=== PATIENT | female | born 1960 | race Caucasian/White ===

== ENCOUNTER → 2017-02-01 | Outpatient (CLI) | payer MEDICARE, OTHER ==
--- NOTE | 2017-02-01 09:17 | MR ---
EXAMINATION TYPE: MR lumbar spine wo con DATE OF EXAM: 02/01/2017 COMPARISON: Previous lumbar MRI June 2013 HISTORY: Radiculopathy, lumbar region TECHNIQUE: Multiplanar, multisequence images of the lumbar spine were acquired. L1-L2: Stable, unremarkable L2-L3: Similar findings. There is some mild facet arthropathy. Minimal posterior broad-based disc bul ge causes only slight anterior mass effect on the thecal sac L3-L4: Broad-based posterior disc bulge causes minimal anterior mass effect on the thecal sac. Facet arthropathy with hypertrophy of the ligamentum flavum is mild and encroaches somewhat on the lateral recesses L4-L5: Posterior broad-based disc bulge causes mild anterior mass effect on the thecal sac somewhat e ccentric towards the left. Hypertrophic change of the ligamentum flavum is mild. L5-S1: Stable, unremarkable Lumbar segments are intact. No paraspinal masses are identified. Conus medullaris has a normal appe arance. Lumbar vertebral bodies show preserved height and alignment. There is mild multilevel spondyl osis, endplate discogenic marrow signal change, loss of disc height and signal at intervertebral leve ls compatible with disc desiccation and degenerative disc disease as on prior exam. There is no signi ficant spinal stenosis or foraminal encroachment. No sizable disc herniation. The conus is at T12-L1 and is unremarkable IMPRESSION: Essentially stable mild degenerative disc disease and facet arthropathy.
== END | disposition home or self-care (01) ==
LOC: RADMRIMAIN 08:15
PROVIDERS: ATTEND Physical Medicine & Rehabilitation
DX: M51.16 Intervertebral disc disorders with radiculopathy, lumbar region (principal); M46.06 Spinal enthesopathy, lumbar region
CPT/HCPCS: 72148

== ENCOUNTER → 2017-04-28 | Outpatient (CLI) | payer MEDICARE, OTHER ==
--- NOTE | 2017-04-29 09:44 | MM ---
Reason for exam: screening (asymptomatic). Last mammogram was performed 1 year and 1 month ago. History: Family history of breast cancer in maternal aunt. Reductions of both breasts, September 1988. Physical Findings: A clinical breast exam by your physician is recommended on an annual basis and results should be correlated with mammographic findings. MG 3D Screening Mammo W/Cad Bilateral CC and MLO view(s) were taken. Prior study comparison: April 09, 2016, bilateral MG 3d screening mammo w/cad. February 14, 2015, mammogram, performed at [facility]. There are scattered fibroglandular densities. There is no discrete abnormality. No significant changes when compared with prior studies. ASSESSMENT: Negative, BI-RAD 1 RECOMMENDATION: Routine screening mammogram of both breasts in 1 year.
== END | disposition home or self-care (01) ==
LOC: RADMAMWWP 12:27
PROVIDERS: ATTEND Family Medicine
DX: Z12.31 Encounter for screening mammogram for malignant neoplasm of breast (principal)
CPT/HCPCS: 77063; G0202

== ENCOUNTER → 2018-01-01 | Outpatient (CLI) | payer MEDICARE, OTHER ==
--- NOTE | 2018-01-02 07:18 | BD ---
EXAMINATION TYPE: MG DEXA axial skeleton. DATE OF EXAM: 01/01/2018 COMPARISON: NONE CLINICAL HISTORY: Height: 5 FT 2 3/4 IN Weight: 147 FRAX RISK QUESTIONS: Alcohol (3 or more units per day): NO Family History (Parent hip fracture): NO Glucocorticoids (More than 3mos): NO (Ex: prednisone, prednisolone, methylprednisolone, dexamethasone, and hydrocortisone). History of Fracture in Adulthood: YES Secondary Osteoporosis: 1. Type 1 Diabetes: NO 2. Hyperthyroidism: NO 3. Menopause before 45: YES 4. Malnutrition: NO 5. Chronic liver disease: NO Rheumatoid Arthritis: NO Current Tobacco Use: NO RISK FACTORS HISTORY OF: Family History of Osteoporosis: YES Active: YES Postmenopausal woman: PART HYST AGE 42 MEDICATIONS: Additional Medications: HYDROCODONE, MORPHINE SULFATE, DOXEPIN,BUSPROPIN, METRONIDAZOLE, Additional History: EXAM MEASUREMENTS: Bone mineral densitometry was performed using the [employer]. Bone mineral density as measured about the Lumbar spine is: ----- L1-L4(G/cm2): 0.999 T Score Values are as follows: ----- L2: -1.5 ----- L3: -1.3 ----- L4: -1.7 ----- L1-L4: -1.5 BASELINE Bone mineral density about the R hip (g/cm2): 0.763 Bone mineral density about the L hip (g/cm2): 0.757 T Score values are as follows: -----R Neck: -2.0 -----L Neck: -2.0 -----R Total: -2.0 -----L Total: -2.0 BASELINE IMPRESSION: Osteopenia (T Score between -2.5 and -1) overall in the low back and both hips. There is slightly increased risk of fracture and the patient may be considered for treatment. Re-Screen 2-5 years. NOTE: T-SCORE=SD OF THE YOUNG ADULT MEAN.
== END | disposition home or self-care (01) ==
LOC: RADBDWWP 16:17
PROVIDERS: ATTEND Family Medicine
DX: M85.851 Other specified disorders of bone density and structure, right thigh (principal); M85.852 Other specified disorders of bone density and structure, left thigh; M85.88 Other specified disorders of bone density and structure, other site
CPT/HCPCS: 77080

== ENCOUNTER 2018-01-20 12:03 | Day surgery (SDC) | payer MEDICARE, OTHER ==
[2018-01-16 08:23] VITALS: BMI 26.0
[~2018-01-20 12:03] MED LIST: LACTATED RINGERS 1,000 ML IV SCH; LIDOCAINE 1% 20 ML VIAL (10MG/ML) FOR IV START INTRADERMA PRN
[2018-01-20 12:49] VITALS: RESP 16; TEMP 97.8
[2018-01-20] MEDS ORDERED: PROPOFOL 10 MG/ML 20 ML VIAL IV ONE (13:29)
[2018-01-20] MEDS ORDERED: LIDOCAINE 1% INJ 10MG/ML (20 ML MDV) ONE (13:29)
[2018-01-20 14:24] VITALS: BP 148/82; PULSE 88
--- NOTE | 2018-01-20 15:18 | P.PCN ---
Date of Procedure: 01/20/18 Procedure(s) Performed: Procedure: Esophagogastroduodenoscopy and biopsy. Preoperative diagnosis: Dysphagia. Postoperative diagnosis: 1. Small sliding hiatal hernia with no obvious esophagitis or complicated reflux disease. 2. Mild gastritis and minimal duodenitis with no ulcers or gastric outlet obstruction. 3. Multiple biopsies obtained from the duodenum, antrum and esophagus. Preparation sedation: Was provided by anesthesia. Brief clinical history: The patient is a 57-year-old female who is scheduled for this evaluation because of dysphagia and a need to constant clearing her throat that has been going on for the last year or so. She was tried on PPI back in June for 1 month with no benefit. She has no alarm symptoms. This evaluation is to assess for esophagitis or complicated Reflux disease. Procedure: With the patient on her left lateral decubitus position and after informed consent and adequate sedation, I passed the Olympus-GIF 160 video upper endoscope through the cricopharyngeus down the esophagus. GE junction was around 35 cm from the incisors and there was a small sliding hiatal hernia but no obvious esophagitis or complicated reflux disease. The endoscope was then passed into the stomach which was insufflated with air and inspected in detail including the retroflex view in the cardia. There was some mottling and erythema in the antrum consistent with mild gastritis but no ulcers or erosions. Pyloric channel did not show any ulcers. Duodenal bulb showed minimal mottling and erythema but no ulcers or erosions or bleeding. Post bulbar area and descending duodenum appeared within normal limits. I obtained multiple biopsies from the duodenum, antrum and esophagus then the endoscope was withdrawn. The patient tolerated the procedure well. Plan: The patient was reassured. Will await biopsy results. Further plans will be made based on her course and biopsy results.
== END 2018-01-20 14:35 | disposition home or self-care (01) ==
LOC: ORWHC2ENDO 12:03
DX: K44.9 Diaphragmatic hernia without obstruction or gangrene (principal); K29.50 Unspecified chronic gastritis without bleeding; K20.0 Eosinophilic esophagitis; K29.80 Duodenitis without bleeding; E07.9 Disorder of thyroid, unspecified; M79.7 Fibromyalgia; Z79.891 Long term (current) use of opiate analgesic; Z79.899 Other long term (current) drug therapy
CPT/HCPCS: 88305; 43239; J2001; J2704

== ENCOUNTER → 2018-04-30 | Outpatient (CLI) | payer MEDICARE, OTHER ==
--- NOTE | 2018-05-04 09:59 | MM ---
Reason for exam: screening (asymptomatic). Last mammogram was performed 1 year ago. History: Patient is postmenopausal. Family history of breast cancer in maternal aunt at age 55. Reductions of both breasts, September 1988. Physical Findings: A clinical breast exam by your physician is recommended on an annual basis and results should be correlated with mammographic findings. MG 3D Screening Mammo W/Cad Bilateral CC and MLO view(s) were taken. Prior study comparison: April 28, 2017, bilateral MG 3d screening mammo w/cad. April 09, 2016, bilateral MG 3d screening mammo w/cad. There are scattered fibroglandular densities. Stable benign calcifications. There is no discrete abnormality. No significant changes when compared with prior studies. ASSESSMENT: Benign, BI-RAD 2 RECOMMENDATION: Routine screening mammogram of both breasts in 1 year.
== END | disposition home or self-care (01) ==
LOC: RADMAMWWP 15:35
PROVIDERS: ATTEND Family Medicine
DX: Z12.31 Encounter for screening mammogram for malignant neoplasm of breast (principal)
CPT/HCPCS: 77063; 77067

== ENCOUNTER → 2019-05-15 | Outpatient (CLI) | payer MEDICARE, OTHER ==
--- NOTE | 2019-05-17 10:42 | MM ---
Reason for exam: screening (asymptomatic). Last mammogram was performed 1 year ago. History: Patient is postmenopausal. Family history of breast cancer in maternal aunt at age 55. Reductions of both breasts, September 1988. Physical Findings: A clinical breast exam by your physician is recommended on an annual basis and results should be correlated with mammographic findings. MG 3D Screening Mammo W/Cad Bilateral CC and MLO view(s) were taken. Prior study comparison: April 30, 2018, bilateral MG 3d screening mammo w/cad. April 28, 2017, bilateral MG 3d screening mammo w/cad. There are scattered fibroglandular densities. Stable benign calcifications. There is no discrete abnormality. No significant changes when compared with prior studies. ASSESSMENT: Benign, BI-RAD 2 RECOMMENDATION: Routine screening mammogram of both breasts in 1 year.
== END | disposition home or self-care (01) ==
LOC: RADMAMWWP 11:16
PROVIDERS: ATTEND Family Medicine
DX: Z12.31 Encounter for screening mammogram for malignant neoplasm of breast (principal)
CPT/HCPCS: 77063; 77067

== ENCOUNTER → 2019-10-15 | Outpatient (CLI) | payer MEDICARE, OTHER ==
--- NOTE | 2019-10-15 15:10 | MR ---
EXAMINATION TYPE: MR cervical spine wo con DATE OF EXAM: 10/15/2019 COMPARISON: 06/10/2013 HISTORY: Neck pain into left arm and fingers TECHNIQUE: Multiplanar, multisequence images of the cervical spine were acquired. C2-C3: Degenerative disc disease and disc desiccation. No canal stenosis or disc herniation. Neural f oramina patent. C3-C4: Degenerative disc disease and mild hypertrophic change of the facets. No foraminal encroachmen t, disc herniation or canal stenosis. C4-C5: Severe degenerative disc disease with broad-based central disc herniation abutting the anterio r margin the spinal cord. Could not exclude mild mass effect. Hypertrophic change of the uncovertebra l joints and facets result in mild bilateral foraminal encroachment. C5-C6: Severe degenerative disc disease with broad-based disc protrusion or herniation greater parace ntrally to left abutting the anterior margin of the spinal cord. Results in canal stenosis. Neural fo ramina remain patent. C6-C7: Severe degenerative disc disease with uncovertebral joint hypertrophy greater on the left. The re is very mild left-sided foraminal encroachment. No disc herniation or canal stenosis. C7-T1: There is left lateral disc bulging or protrusion left-sided moderate to severe foraminal encro achment. No Canal stenosis. Right neural foramina patent. Cervical segments are intact. There is normal alignment. Cervical spinal cord is of normal signal. Craniovertebral junction relationships are within normal limits. Subcentimeter thyroid nodules note d. IMPRESSION: 1. There is a left lateral disc protrusion at C7-T1 results in significant left-sided foraminal encro achment. Correlate for radiculopathy at this level. Far lateral disc herniation in the differential d iagnosis 2. Disc herniations with severe degenerative disc disease C4-5 and C5-C6 results in canal stenosis an d abuts the anterior margin of the spinal cord at both levels. Foraminal encroachment as discussed ab ove. 3. Multilevel significant degenerative disc disease. 4. Subcentimeter bilateral thyroid nodules
== END | disposition home or self-care (01) ==
LOC: RADMRIMAIN 12:59
DX: M48.02 Spinal stenosis, cervical region (principal); M50.121 Cervical disc disorder at C4-C5 level with radiculopathy
CPT/HCPCS: 72141

== ENCOUNTER → 2020-05-19 | Outpatient (CLI) | payer MEDICARE, OTHER ==
--- NOTE | 2020-05-22 10:01 | MM ---
Reason for exam: screening (asymptomatic). Last mammogram was performed 1 year ago. History: Patient is postmenopausal. Family history of breast cancer in maternal aunt at age 55. Reductions of both breasts, September 1988. Physical Findings: A clinical breast exam by your physician is recommended on an annual basis and results should be correlated with mammographic findings. MG 3D Screening Mammo W/Cad Bilateral CC and MLO view(s) were taken. Prior study comparison: May 15, 2019, bilateral MG 3d screening mammo w/cad. April 30, 2018, bilateral MG 3d screening mammo w/cad. There are scattered fibroglandular densities. Stable benign calcifications. There is no discrete abnormality. No significant changes when compared with prior studies. ASSESSMENT: Benign, BI-RAD 2 RECOMMENDATION: Routine screening mammogram of both breasts in 1 year.
== END | disposition home or self-care (01) ==
LOC: RADMAMWWP 14:41
PROVIDERS: ATTEND Family Medicine
DX: Z12.31 Encounter for screening mammogram for malignant neoplasm of breast (principal)
CPT/HCPCS: 77063; 77067

== ENCOUNTER 2022-06-05 06:13 | Day surgery (SDC) | payer MEDICARE, OTHER ==
[2022-06-04 11:23] VITALS: BMI 28.3
[~2022-06-05 06:13] MED LIST changes: +LIDOCAINE 1% (10MG/ML) FOR IV START INTRADERMA PRN; -LIDOCAINE 1% 20 ML VIAL (10MG/ML) FOR IV START INTRADERMA PRN
[2022-06-05 07:04] VITALS: TEMP 96.8
[2022-06-05] MEDS ORDERED: PROPOFOL 10 MG/ML 20 ML VIAL IV ONE (07:27)
[2022-06-05] MEDS ORDERED: LIDOCAINE 2% INJ 20 MG/ML (2 ML VIAL) ONE (07:27)
--- NOTE | 2022-06-05 07:53 | P.PCN ---
Date of Procedure: 06/05/22 Procedure(s) Performed: Brief history: Patient is a pleasant 61-year-old white female scheduled for an elective upper endoscopy as well as colonoscopy as a part of evaluation of intermittent dysphagia to solids and screening for colon cancer. She has been having intermittent dysphagia to solids and pills for the last few months. She was treated with omeprazole 40 mg daily for 4 weeks with no help. Procedure performed: Esophagogastroduodenoscopy with biopsy and dilation Colonoscopy Preoperative diagnosis: Intermittent dysphagia to solids Screening for colon cancer Anesthesia: MAC Procedure: After informed consent was obtained from the patient was brought into the endoscopy unit and IV sedation was administered by anesthesia under continuous monitoring. Initially upper endoscopy was done. The Olympus GF 160 video endoscope was inserted inserted into the mouth and esophagus intubated without any difficulty and was gradually advanced into the stomach and duodenum and carefully examined. The bulb and second part of the duodenum appeared normal. The scope was then withdrawn into the stomach adequately insufflated with air and upon careful examination the antrum and body, cardia and fundus appeared normal. The scope was then withdrawn into the esophagus. The GE junction was located at 40 cm to the incisors. It appeared regular with no erythema erosions or ulcerations. There was a distal esophageal Schatzki's ring identified which was dilated using 18-20 mm TTS balloon in a sequential fashion for 60 seconds. Biopsies were done from the mid and distal esophagus to rule out years of age esophagitis. Rest of the esophagus appeared normal. Patient tolerated the proc edure well. At this time the patient continued to remain sedation. Initial digital rectal examination was normal. Olympus CF 160 video colonoscope was then inserted into the rectum and gradually advanced to the cecum without any difficulty. Careful examination was performed as the scope was gradually being withdrawn. The prep was fair. The cecum, ascending colon, transverse colon, descending colon, sigmoid colon and rectum appeared normal. Retroflexion was performed in the rectum and no lesions were noted. Patient tolerated the procedure well. Impression: 1. Upper endoscopy revealed distal esophageal Schatzki's ring status post balloon dilation using 18-20 mm TTS balloon as described above and small hiatal 2. Colonoscopy was within normal limits with no evidence of colorectal ne oplasia Recommendations: Findings of this examination were discussed with the patient as well as his family. She was advised to follow with the biopsy results. Repeat screening colonoscopy in 10 years. She was advised to follow up in office in 3-4 weeks
[2022-06-05 08:00] VITALS: PULSE 78; RESP 16
[2022-06-05 08:12] VITALS: BP 128/74
== END 2022-06-05 08:30 | disposition home or self-care (01) ==
LOC: ORWHC2ENDO 06:13
PROVIDERS: ATTEND Internal Medicine Gastroenterology
DX: Z12.11 Encounter for screening for malignant neoplasm of colon (principal); K22.2 Esophageal obstruction; K44.9 Diaphragmatic hernia without obstruction or gangrene; I10 Essential (primary) hypertension; E07.9 Disorder of thyroid, unspecified; F41.8 Other specified anxiety disorders; M79.7 Fibromyalgia; Z79.890 Hormone replacement therapy; Z79.899 Other long term (current) drug therapy
CPT/HCPCS: 88305; 43239; 43249; J2704; J2001; C1726; G0121

== ENCOUNTER → 2022-07-03 | Outpatient (CLI) | payer MEDICARE, OTHER ==
--- NOTE | 2022-07-04 19:16 | MM ---
Reason for Exam: Screening (asymptomatic). Last screening mammogram was performed 12 month(s) ago. Patient History: Menarche at age 13. First Full-Term at age 22. Hysterectomy at age 41. Postmenopausal. Patient used Hormonal Contraceptives for 1 year. 09/1988, Bilateral Reduction. Maternal aunt had breast cancer, age 55. Risk Values: Sofía 5 year model risk: 1.3%. NCI Lifetime model risk: 6.6%. Prior Study Comparison: 02/01/2014 Screening Mammogram, [facility]. 02/14/2015 Screening Mammogram, [facility]. 04/09/2016 Bilateral Screening Mammogram, [facility]. 04/28/2017 Bilateral Screening Mammogram, [facility]. 04/30/2018 Bilateral Screening Mammogram, [facility]. 05/15/2019 Bilateral Screening Mammogram, [facility]. 05/19/2020 Bilateral Screening Mammogram, [facility]. 06/20/2021 Bilateral MG 3D screening mammo w/cad, [facility]. Tissue Density: There are scattered fibroglandular densities. Findings: Analyzed By CAD. Unchanged global asymmetry lateral right CC view. Chronic nodularity superior left MLO view. No significant change from prior exams. Overall Assessment: Benign, BI-RAD 2 Management: Screening Mammogram of both breasts in 1 year. 1. Patient should continue monthly self breast exams. 2. A clinical breast exam by your physician is recommended on an annual basis. 3. This exam should not preclude additional follow-up of suspicious palpable abnormalities. Electronically signed and approved by: Angela Ford M.D. Radiologist
== END | disposition home or self-care (01) ==
LOC: RADMAMWWP 11:54
PROVIDERS: ATTEND Internal Medicine
DX: Z12.31 Encounter for screening mammogram for malignant neoplasm of breast (principal); Z78.0 Asymptomatic menopausal state; Z80.3 Family history of malignant neoplasm of breast
CPT/HCPCS: 77063; 77067

== ENCOUNTER → 2023-07-08 | Outpatient (CLI) | payer MEDICARE, OTHER ==
--- NOTE | 2023-07-09 08:13 | MM ---
Reason for Exam: Screening (asymptomatic). Last screening mammogram was performed 12 month(s) ago. Patient History: Menarche at age 13. First Full-Term at age 22. Hysterectomy at age 41. Postmenopausal. Patient used Hormonal Contraceptives for 1 year. 09/1988, Bilateral Reduction. Maternal aunt had breast cancer, age 55. Risk Values: Sofía 5 year model risk: 1.3%. NCI Lifetime model risk: 6.4%. Prior Study Comparison: 05/19/2020 Bilateral Screening Mammogram, [facility]. 06/20/2021 Bilateral MG 3D screening mammo w/cad, [facility]. 07/03/2022 Bilateral MG 3D screening mammo w/cad, [facility]. Tissue Density: There are scattered fibroglandular densities. Findings: Analyzed By CAD. There is no suspicious group of microcalcifications or new suspicious mass in either breast. Chronic nodularity within both breasts. Benign-appearing round calcifications within both breasts. Overall Assessment: Benign, BI-RAD 2 Management: Screening Mammogram of both breasts in 1 year. A clinical breast exam by your physician is recommended on an annual basis and results should be correlated with mammographic findings. Note on Sofía scores and lifetime risk: 1. A Sofía score greater than 3% is considered moderate risk. If this is the case, consider specialist referral to assess eligibility for a risk reducing agent. If overall lifetime risk for the development of breast cancer is 20% or higher, the patient may qualify for future screening with alternating mammogram and breast MRI. Electronically signed and approved by: Harry Clement D.O.
== END | disposition home or self-care (01) ==
LOC: RADMAMWWP 16:30
PROVIDERS: ATTEND Internal Medicine
DX: Z12.31 Encounter for screening mammogram for malignant neoplasm of breast (principal); Z78.0 Asymptomatic menopausal state; Z80.3 Family history of malignant neoplasm of breast
CPT/HCPCS: 77063; 77067

== ENCOUNTER → 2024-03-25 | Day surgery (SDC) | payer MEDICARE, OTHER ==
[~2024-03-25] MED LIST changes: +ALPRAZolam 0.25 MG TAB PO PRN; +ALPRAZolam 0.5 MG TAB PO PRN; +ASPIRIN 325 MG TAB PO STA; +HEPARIN SODIUM 1,000 UN/ML (10ML VL) ONE; -LACTATED RINGERS 1,000 ML IV SCH; -LIDOCAINE 1% (10MG/ML) FOR IV START INTRADERMA PRN; +LIDOCAINE 1% INJ 10MG/ML (20 ML MDV) ONE; +NITROGLYCERIN SL TABS 0.4 MG TAB SUBLINGUAL PRN; +VERAPAMIL 2.5 MG/ML 2 ML AMP ONE; +fentaNYL (PF) 50 MCG/ML 2 ML AMP ONE
[2024-03-25] MEDS: IV FLUID CONTINUATION 1,000 ML IV ONE (09:47)
[2024-03-25] MEDS: SODIUM CHLORIDE 0.9% 1,000 ML in EMPTY BAG 1 BAG IV SCH (09:47)
[2024-03-25 09:57] VITALS: TEMP 97.7
[2024-03-25] MEDS: fentaNYL (PF) 50 MCG/ML 2 ML AMP IVP ONE ×2 (10:44→10:46)
[2024-03-25] MEDS: LIDOCAINE 1% INJ 10MG/ML (20 ML MDV) SQ ONE (10:44)
[2024-03-25] MEDS: MIDAZOLAM 2 MG/2 ML VIAL IVP ONE ×2 (10:44→10:46)
[2024-03-25] MEDS: VERAPAMIL SYRINGE (5 MG/10 ML) INTRAARTER ONE (10:46)
[2024-03-25] MEDS: HEPARIN SODIUM 1,000 UN/ML (10ML VL) IVP ONE (10:50)
[2024-03-25] MEDS: IOPAMIDOL-370 100ML BTL INJ ONE (11:02)
--- NOTE | 2024-03-25 11:05 | P.CARDCATH ---
Description of Procedure: PROCEDURES PERFORMED: Left heart catheterization, bilateral coronary angiography, ultrasound guided arterial access INDICATION: abnormal stress test CONSENT:I have discussed the risks, benefits and alternative therapies for the above-mentioned procedure and for both sedation/analgesia as well as necessary blood product administration, if indicated, as they pertain to this patient. The patient has indicated understanding and acceptance of the risks and procedures discussed. PROCEDURE: After the risks, benefits and alternatives of the above mentioned procedure explained in detail with the patient, informed consent was obtained. Patient was taken to the catheterization lab and prepped and draped in usual fashion. Ultrasound guidance was used to assess for arterial access. 1% lidocaine was used to anesthetize the right radial artery. A 6-Hong Konger sheath was placed in the right radial artery using modified Seldinger technique and ultrasound guidance. Left coronary angiography was performed with a 5-Hong Konger JL 3.5 catheter and right coronary angiography was performed with a 5-Hong Konger FR5 catheter in various views. A 5-H[place] Konger FR5 catheter was inserted into the left ventricle and pressure measurements were obtained. The right radial sheath was removed and a TR band was placed with hemostasis achieved. The patient to lerated the procedure well. Patient was transported back to the post catheterization holding area in stable condition. Conscious Sedation: Patient was monitored under the direct supervision of myself for conscious sedation using Versed and fentanyl for a total duration of 12 minutes HEMODYNAMICS: aorta: 138/72 LV: 134/6, LVEDP 12 SELECTIVE CORONARY ARTERIOGRAPHY: LEFT MAIN: The left main is a large caliber vessel which bifurcates into the LAD and circumflex. There is no significant stenosis. LEFT ANTERIOR DESCENDING CORONARY ARTERY: LAD is a large caliber vessel which wraps around to the apex. There is no significant stenosis. LEFT CIRCUMFLEX CORONARY ARTERY: Left circumflex is a moderate caliber vessel without significant stenosis. RIGHT CORONARY ARTERY: The right coronary artery is a large caliber vessel which gives off a PDA and PLV branch and is the dominant vessel. There is no significant stenosis. FINAL IMPRESSION: 1. Normal coronary arteries as described above. 2. Normal left sided filling pressures PLAN: 1. Aggressive risk factor modification per most recent ACC/AHA guidelines. 2. Follow-up in the office in 1-2 weeks.
[2024-03-25 12:19] VITALS: RESP 16
[2024-03-25 12:20] VITALS: BP 134/75; PULSE 90
== END ==
LOC: CATHCVL 08:53
PROVIDERS: ATTEND Internal Medicine
DX: R06.02 Shortness of breath (principal); R55 Syncope and collapse; R94.39 Abnormal result of other cardiovascular function study
CPT/HCPCS: 93458; C1769; C1894; J2250; J2001; J3010; J1644; Q9967

== ENCOUNTER → 2024-07-12 | Outpatient (CLI) | payer MEDICARE, OTHER ==
--- NOTE | 2024-07-13 08:06 | MM ---
Reason for Exam: Screening (asymptomatic). Last mammogram was performed 1 year(s) and 1 month(s) ago. Patient History: Menarche at age 13. First Full-Term at age 22. Hysterectomy at age 41. Postmenopausal. Patient used Hormonal Contraceptives for 1 year. 09/1988, Bilateral Reduction. Maternal aunt had breast cancer, age 55. Risk Values: Sofía 5 year model risk: 1.4%. NCI Lifetime model risk: 6.2%. Prior Study Comparison: 06/20/2021 Bilateral MG 3D screening mammo w/cad, [facility]. 07/03/2022 Bilateral MG 3D screening mammo w/cad, [facility]. 07/08/2023 Bilateral MG 3D screening mammo w/cad, [facility]. Tissue Density: There are scattered areas of fibroglandular density. Findings: Analyzed By CAD. There is no suspicious group of microcalcifications or new suspicious mass in either breast. Stable benign-appearing calcifications. Chronic nodularity left breast. Stable asymmetric density right breast. Unchanged from multiple prior exams. Overall Assessment: Benign, BI-RAD 2 Management: Screening Mammogram of both breasts in 1 year. . Patient should continue monthly self-breast exams. A clinical breast exam by your physician is recommended on an annual basis. This exam should not preclude additional follow-up of suspicious palpable abnormalities. Note on Sofía scores and lifetime risk: 1. A Sofía score greater than 3% is considered moderate risk. If this is the case, consider specialist referral to assess eligibility for a risk reducing agent. 2. If overall lifetime risk for the development of breast cancer is 20% or higher, the patient may qualify for future screening with alternating mammogram and breast MRI. [facility], , 07/13/2024 8:03 AM. Electronically signed and approved by: Rashad Sousa M.D. Radiologis
== END | disposition home or self-care (01) ==
LOC: RADMAMWWP 16:04
PROVIDERS: ATTEND Internal Medicine
DX: Z12.31 Encounter for screening mammogram for malignant neoplasm of breast (principal); R92.323 Mammographic fibroglandular density, bilateral breasts; Z78.0 Asymptomatic menopausal state; Z80.3 Family history of malignant neoplasm of breast
CPT/HCPCS: 77063; 77067

== ENCOUNTER → 2024-10-05 | Outpatient (CLI) | payer MEDICARE, OTHER ==
--- NOTE | 2024-10-05 13:25 | BD ---
EXAMINATION TYPE: Axial Bone Density DATE OF EXAM: 10/05/2024 CLINICAL HISTORY: 64 years old Female. ICD-10 CODE: M85.80 OTHER SPECIFIED DISORDERS OF BONE DENSITY , Additional History: Height: 5 ft 2 1/2 in Weight: 163 FRAX RISK QUESTIONS: Alcohol (3 or more units per day): no Family History (Parent hip fracture): no Glucocorticoids (More than 3mos): no (Ex: prednisone, prednisolone, methylprednisolone, dexamethasone, and hydrocortisone). History of Fracture in Adulthood: yes Secondary Osteoporosis: 1. Type 1 Diabetes: no 2. Hyperthyroidism: nodules 3. Menopause before 45: no 4. Malnutrition: no 5. Chronic liver disease: no Rheumatoid Arthritis: no Current Tobacco Use: no RISK FACTORS HISTORY OF: Surgery to Spine/Hip(right/left)/Wrist (right/left): none MEDICATIONS: Thyroid Medications: none now Osteoporosis Medications: none EXAM MEASUREMENTS: Bone mineral densitometry was performed using the [employer]. Bone mineral density as measured about the Lumbar spine is: ----- L1-L4(G/cm2): 1.015 T Score Values are as follows: ----- L1: -1.8 ----- L2: -1.6 ----- L3: -1.1 ----- L4: -1.3 ----- L1-L4: -1.4 Z Score Values are as follows: ----- L1: -0.6 ----- L2: -0.4 ----- L3: 0.0 ----- L4: -0.2 ----- L1-L4: -0.2 Bone mineral density has: increased 1.6 % since study of: 1018 Bone mineral density about the R hip (g/cm2): 0.761 Bone mineral density about the L hip (g/cm2): 0.733 T Score values are as follows: -----R Neck: -2.0 -----L Neck: -2.2 -----R Total: -1.8 -----L Total: -2.0 Z Score values are as follows: -----R Neck: -0.8 -----L Neck: -1.0 -----R Total: -0.9 -----L Total: -1.1 Bone mineral density has: increased 1.9 % since study of: 2018 FRAX%s: The graph provided illustrates a 11.0 % chance for a major osteoporotic fx and a 1.8 % chance for the hips probability for fx in 10 years time. IMPRESSION: Osteopenia (T Score between -2.5 and -1). There is slightly increased risk of fracture and the patient may be considered for treatment. Re-Screen 2-5 years. NOTE: T-SCORE=SD OF THE YOUNG ADULT MEAN. [facility], , 10/05/2024 1:00 PM
== END | disposition home or self-care (01) ==
LOC: RADBDWWP 12:40
PROVIDERS: ATTEND Internal Medicine
DX: M85.89 Other specified disorders of bone density and structure, multiple sites (principal)
CPT/HCPCS: 77080